=== PATIENT | male | born 1930 | race Caucasian/White ===

== ENCOUNTER 2017-01-12 10:50 | Outpatient (CLI) | payer MEDICARE, OTHER ==
[2015-12-31 08:57] VITALS: BP 121/75
[2017-01-12 11:31] LABS: eGFR (African) > 60; eGFR (Non-African) > 60
== END 2017-01-12 10:52 ==
LOC: LAB 10:50
PROVIDERS: ATTEND Family Medicine
DX: R10.30 Lower abdominal pain, unspecified (principal)
CPT/HCPCS: 36415; 80048; 87086

== ENCOUNTER 2017-01-17 08:40 | Outpatient (CLI) | payer OTHER ==
[2015-12-31 08:57] VITALS: BP 121/75
--- NOTE | 2017-01-17 15:25 | Diagnostic Imaging Report ---
[facility] [address] [facility] [address] [place] [address]. [id number] Report Submission Date: Jan 17, 2017 3:21:23 PM HOSE OPERATOR Patient Study Name: NANY DEMPSEY Date: Jan 17, 2017 8:57:50 AM HOSE OPERATOR Modality Type: CT\SR Gender: M Description: CT ABD & PELVIS W & W/ : 34 Institution: [facility] Physician: JI CHAPMAN - OP CT Abdomen/pelvis History: LOWER ABDMONIAL PAIN. PT STATES INTERMITTENT DISCOMFORT X ONE MONTH Multiple axial images of the abdomen and pelvis are submitted with reconstructions Findings: No comparison studies Minimal atelectasis at the lung bases There is no free intraperitoneal air Multilevel thoracolumbar spine degenerative changes are present 1.7 cm liver cyst, adrenal glands, spleen are within normal limits, spleen demonstrates calcific foci The pancreas is atrophic Multiple gallstones are present There is no hydronephrosis bilaterally Pelvic phleboliths are noted Left groin hernia contains fat Prostatic calcification is present Appendix is within normal limits No bowel obstruction 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 Multiple gallstones are present. No biliary dilatation. 2. Prostatic calcification, prostratomegaly, please correlate with serum PSA levels. There is minimal fat stranding in the deep pelvis 3. Appendix is within normal limits. No free fluid/ localized abscess in the abdomen or pelvis 4. No hydronephrosis. Fat containing left groin hernia Electronically signed on Jan 17, 2017 3:21:23 PM HOSE OPERATOR by: Nancy FREED
== END 2017-01-17 08:42 ==
LOC: RAD 08:40
PROVIDERS: ATTEND Family Medicine
DX: K80.80 Other cholelithiasis without obstruction (principal); R10.30 Lower abdominal pain, unspecified
CPT/HCPCS: 74178; Q9966

== ENCOUNTER 2017-04-05 13:45 | Outpatient (CLI) | payer OTHER ==
[2015-12-31 08:57] VITALS: BP 121/75
== END 2017-04-05 13:46 ==
LOC: LABRHC 13:45
PROVIDERS: ATTEND Family Medicine
DX: R10.30 Lower abdominal pain, unspecified (principal)
CPT/HCPCS: 87086

== ENCOUNTER 2017-12-21 09:21 | Outpatient (CLI) | payer OTHER ==
[2015-12-31 08:57] VITALS: BP 121/75
--- NOTE | 2017-12-21 11:11 | Diagnostic Imaging Report ---
JI CHAPMAN [facility] [address] [facility] [address] [id number] Report Submission Date: Dec 21, 2017 10:15:05 AM CAR PILOT Patient Study Name: NANY DEMPSEY Date: Dec 21, 2017 9:34:50 AM CAR PILOT Modality Type: CR Gender: M Description: UPPER EXTREMITY : 34 Institution: [facility] Physician: JI CHAPMAN Examination: Plain film extremity History: 3rd digit injury Comparison exams: None available Findings: 4 views the 3rd digit demonstrates articular degenerative changes. No fracture. No dislocation. No soft tissue abnormality or foreign body. Impression: Articular degenerative changes. No acute osseous soft tissue abnormality. Electronically signed on Dec 21, 2017 10:15:05 AM CAR PILOT by: Salvador FREED
== END 2017-12-21 09:22 ==
LOC: RAD 09:21
PROVIDERS: ATTEND Family Medicine
DX: S61.213D Laceration without foreign body of left middle finger without damage to nail, subsequent encounter (principal)
CPT/HCPCS: 73140